=== PATIENT | male | born 1965 | race Caucasian/White ===

== ENCOUNTER 2024-05-29 21:34 | Emergency (ER) | payer MEDICAID ==
[~2024-05-29] VITALS: Ht 182.9 cm; Wt 104.0 kg
[~2024-05-29 21:34] MED LIST: HYDR-3965 PO
[2024-05-29 21:38] VITALS: BP 175/91; PULSE 90; RESP 16; TEMP 98.4; O2SAT 96
[2024-05-29] MEDS ORDERED: HYDR-3973 PO (22:03)
[2024-05-29] MEDS: HYDROcodone/acetaminophen 10/325mg tab PO ONE (22:08)
== END 2024-05-29 22:12 | disposition home or self-care (01) ==
LOC: ER 21:35
DX: M87.88 Other osteonecrosis, other site (principal)
CPT/HCPCS: 99283

== ENCOUNTER 2024-07-19 20:48 | Emergency (ER) | payer MEDICAID ==
[~2024-07-19] VITALS: Ht 182.9 cm; Wt 106.8 kg
[2024-07-19] MEDS: ondansetron 4mg rapidly disintigrating tab PO ONE (22:28)
[2024-07-19] MEDS: HYDROmorphone 1 mg/ml syringe IM ONE (22:29)
[2024-07-19] MEDS ORDERED: HYDR-3973 PO (23:19)
[2024-07-19 23:26] VITALS: BP 135/82; PULSE 88; RESP 14; TEMP 97.3; O2SAT 99
== END 2024-07-19 23:29 | disposition home or self-care (01) ==
LOC: ER 20:49
DX: M87.88 Other osteonecrosis, other site (principal); G89.29 Other chronic pain; M25.551 Pain in right hip
CPT/HCPCS: 96372; 99283; J1171